=== PATIENT | male | born 1940 | race Caucasian/White ===

== ENCOUNTER 2022-11-23 00:03 | Outpatient (CLI) | payer MEDICARE, BC | END 2022-11-23 23:59 | disposition critical access hospital (66) | LOC: EMS 00:03 | DX: I95.1 Orthostatic hypotension (principal); R42 Dizziness and giddiness; R11.0 Nausea; R10.30 Lower abdominal pain, unspecified | CPT/HCPCS: A0425; A0427 ==

== ENCOUNTER 2022-11-23 00:35 | Emergency (ER) | payer MEDICARE, BC ==
[2022-11-23] MEDS ORDERED: ONDANSETRON 4 MG/2 ML VIAL IVP STA (00:52)
[2022-11-23] MEDS ORDERED: MECLIZINE 12.5 MG TABLET PO STA (00:53)
--- NOTE | 2022-11-23 00:56 | ED Physician Documentation ---
History of Present Illness - Stated complaint Stated Complaint: DIZZINESS/NAUSEA - Chief complaint Chief Complaint: Neuro - History obtained from History obtained from: Patient - Additonal information Additional information: Patient is an 82-year-old male presenting for evaluation of feeling dizziness with nausea since around 6 PM. Patient states that he also has a discomfort across his abdomen and then started feeling the nausea and dizziness. The dizziness he describes as feeling like he is going to faint or pass out and is worse if he moves or tries to sit up or stand up.He reports having a history of vertigo in the past which she states the last episode was 3 years ago. He states at that time he had to lay on the floor for several hours before he was able to get up and make it into a bed where he laid for a few more hours. He did not see a doctor at that time. He denies a headache, chest pain, cough, vomiting, diarrhea, extremity weakness. He is not on a blood thinner. 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 He denies any changes to his vision here tonight.Reports a history of syncope in the past for which she has seen cardiology. Per the paramedics, they were unable to get a blood pressure with him standing as he was feeling too lightheaded. They did start an IV and administered 1 L of IV fluids. Review of Systems Constitutional: denies: Fever Cardiac: denies: Chest pain / pressure Respiratory: denies: Dyspnea GI: reports: Abdominal Pain, Nausea : denies: Dysuria Musculoskeletal: denies: Back pain Neurologic: denies: Syncope, Headache PD PAST MEDICAL HISTORY - Present Medications Home Medications: Ambulatory Orders Medication Instructions Recorded Confirmed Acyclovir 800 mg PO BID 11/23/22 11/23/22 Aspirin [Aspirin Regimen] 81 mg PO 11/23/22 11/23/22 Calcium Carbonate/Vitamin D3 1 each PO DAILY 11/23/22 11/23/22 [Calcium 600-Vit D3 800 Tablet] Ondansetron Odt [Zofran] 4 mg TL Q6H PRN #10 tablet 11/23/22 Pantoprazole [Protonix] 40 mg PO DAILY 11/23/22 11/23/22 Sertraline [Zoloft] 100 mg PO DAILY 11/23/22 11/23/22 Simvastatin [Zocor] 20 mg PO HS 11/23/22 11/23/22 Timolol 0.5% Ophth Drops [Timoptic 1 drops LEFTEYE BID 11/23/22 11/23/22 0.5% Ophth Drops] - Allergies Allergies/Adverse Reactions: Allergies Allergy/AdvReac Type Severity Reaction Status Date / Time codeine Allergy Unknown Verified 11/23/22 01:13 morphine Allergy Unknown Verified 11/23/22 01:13 propoxyphene [From Darvon] Allergy Unknown Verified 11/23/22 01:13 PD ED PE NORMAL - General General: Alert and oriented X 3, No acute distress, Well developed/nourished - HEENT HEENT: Atraumatic, EOMI, Moist mucous membranes, Pharynx benign, Other (Left pupil round, reactive; Right pupil round, minimally reactive) - Neck Neck: Supple, no meningeal sign, No bony TTP - Cardiac Cardiac: RRR, No murmur - Respiratory Respiratory: No respiratory distress, Clear bilaterally - Abdomen Abdomen: Normal bowel sounds, Soft, Non distended, Other (Mild periumbilical tenderness to palpation) - Derm Derm: Warm and dry - Extremities Extremities: No deformity - Neuro Neuro: Alert and oriented X 3, registered associate 2-12 intact, No motor deficit, No sensory deficit, Normal speech, Other (Normal [id number] bilaterally) Results - Vitals Vitals: Vital Signs - 24 hr 11/23/22 11/23/22 11/23/22 00:41 01:40 03:03 Temperature 37 C Heart Rate 53 L 90 Heart Rate [ 90 Sitting] Heart Rate [ 98 Standing] Heart Rate [ 95 Supine] Respiratory 14 16 Rate Blood Pressure 137/61 H 136/64 H Blood Pressure 129/70 [Sitting] Blood Pressure 116/70 [Standing] Blood Pressure 148/76 H [Supine] O2 Saturation 94 98 11/23/22 03:35 Temperature 36.7 C Heart Rate 67 Heart Rate [ Sitting] Heart Rate [ Standing] Heart Rate [ Supine] Respiratory 14 Rate Blood Pressure 123/73 Blood Pressure [Sitting] Blood Pressure [Standing] Blood Pressure [Supine] O2 Saturation 98 Oxygen O2 Source Room air - Labs Labs: Laboratory Tests 11/23/22 11/23/22 01:00 01:00 WBC 6.6 RBC 4.40 L Hgb 13.0 L Hct 39.4 L MCV 89.5 MCH 29.5 MCHC 33.0 RDW 12.6 Plt Count 224 MPV 9.2 Neut # (Auto) 5.1 Lymph # (Auto) 0.8 L [place] # (Auto) 0.5 Eos # (Auto) 0.2 Baso # (Auto) 0.1 Absolute Nucleated RBC 0.00 Nucleated RBC % 0.0 Sodium 138 Potassium 3.6 Chloride 103 Carbon Dioxide 24 Anion Gap 11.0 BUN 19 Creatinine 0.9 Estimated GFR (MDRD) 80 L Glucose 128 H Calcium 8.5 Total Bilirubin 0.3 AST 18 ALT 17 Alkaline Phosphatase 79 Total Protein 6.3 L Albumin 3.6 Globulin 2.7 Albumin/Globulin Ratio 1.3 Lipase 47 PD Medical Decision Making - ED course Complexity details: reviewed results, re-evaluated patient, d/w patient, d/w family ED course: 0245 - Patient reports feeling better. Does report still feeling some lighthe adedness with changing positions. His is also at the bedside. Reviewed current work-up.Discussed his earlier symptoms further. Patient denies feeling room spinning, off-balance Sensation. He describes the dizziness as feeling more lightheaded Than anything. Patient presenting for evaluation of dizziness with abdominal pain and nausea starting this evening.Per EMS he was orthostatic at the scene. His initial vital signs here appear stable. His neurologic exam is normal with no focal deficits. Patient initially had difficulty in describing what he meant by dizziness. Therefore head CT was obtained which is negative for signs of an intracranial hemorrhage. A CBC and chemistry were also reviewed without significant findings.His EKG demonstrates a sinus rhythm. There does appear to be a first-degree AV block. I do not have any prior for comparison. He does not have any chest pain to suggest ACS. I reviewed patient's chest x-ray as well as CT scan of the abdomen and pelvis and without any significant findings. Patient is feeling significantly better after IV fluids and Zofran. He received 1 L of IV fluids from EMS and additional 500 cc of IV fluids here After orthostatic vitals were taken. Patient is able to ambulate to the restroom without any symptoms. He is feeling back to his usual self. He has an upcoming appointment with his PCP on Thursday. He understands the need for close outpatient follow-up as well as concerning symptoms to return for. Departure - Departure Disposition: Home, Self Care Clinical Impression: Dizziness, Orthostatic hypotension, First degree AV block Condition: Good Instructions: ED Dizziness [facility] Follow-Up: SYBIL PARTIDA MD [Primary Care Provider] - Within 3 Days Prescriptions: Ondansetron Odt [Zofran] 4 mg TL Q6H PRN #10 tablet PRN Reason: Nausea / Vomiting Comments: You were found to have orthostatic hypotension which means that your blood pressure drops too much when you go from laying down to standing. This can make you feel dizzy and faint. We have given you IV fluids which appears to have helped your symptoms.Your labs including a CBC and chemistries did not show any significant abnormalities. We did obtain a CT scan of your brain as well as your abdomen and pelvis and there was also no concerning findings. Your EKG does show some irregularities including a first-degree AV block. I do not have access to any of your old EKGs to know if this is something that is been present In the past. I would recommend close follow-up with your primary care provider as well as with a media developer. I have sent a prescription for antinausea medication to [facility] in [place]. Please make sure you are staying hydrated and Take it slow when you are changing positions. If you develop any worsening symptoms please return to the emergency department. Discharge Date/Time: 11/23/22 03:45
[2022-11-23 01:05] LABS: BASOPHILS # (AUTO) 0.1 10^3/uL (0.0-0.1); BASOPHILS % (AUTO) 0.8 %; EOSINOPHILS # (AUTO) 0.2 10^3/uL (0.0-0.7); EOSINOPHILS % (AUTO) 2.6 %; HCT - HEMATOCRIT 39.4 % (42.0-52.0); LYMPHOCYTES # (AUTO) 0.8 10^3/uL (1.5-3.5); LYMPHOCYTES % (AUTO) 12.4 %; MEAN CORPUSCULAR HEMOGLOBIN 29.5 pg (27.0-31.0); MEAN CORPUSCULAR VOLUME 89.5 fL (80.0-94.0); MEAN PLATELET VOLUME 9.2 fL (7.4-11.4); MONOCYTES # (AUTO) 0.5 10^3/uL (0.0-1.0); MONOCYTES % (AUTO) 7.8 %; NEUTROPHILS # (AUTO) 5.1 10^3/uL (1.5-6.6); NEUTROPHILS % (AUTO) 76.1 %; PLT - PLATELET COUNT 224 10^3/uL (130-450); RED CELL DISTRIBUTION WIDTH 12.6 % (12.0-15.0); WHITE BLOOD COUNT 6.6 x10^3/uL (4.8-10.8)
[2022-11-23 01:17] LABS: ALBUMIN 3.6 g/dL (3.2-5.5); ALBUMIN/GLOBULIN RATIO 1.3 (1.0-2.2); BILIRUBIN,TOTAL 0.3 mg/dL (0.2-1.0); CALCIUM 8.5 mg/dL (8.5-10.3); CREATININE 0.9 mg/dL (0.6-1.2); POTASSIUM 3.6 mmol/L (3.5-5.0); TOTAL PROTEIN 6.3 g/dL (6.7-8.2)
[2022-11-23] MEDS ORDERED: iohexoL-300 100 ML VIAL ONE (01:30)
--- NOTE | 2022-11-23 01:48 | XRAY Report ---
PROCEDURE: Chest 1 View X-Ray INDICATIONS: dizzy TECHNIQUE: One view of the chest was acquired. COMPARISON: None. FINDINGS: Surgical changes and devices: None. Lungs and pleura: No pleural effusions or pneumothorax. Lungs are clear. Mediastinum: Mediastinal contours appear normal. Heart size is normal. Bones and chest wall: No suspicious bony lesions. Overlying soft tissues appear unremarkable. IMPRESSION: No acute cardiopulmonary process. Reviewed by: Ankit Levin MD on 11/23/2022 1:46 AM PDT Approved by: Ankit Levin MD on 11/23/2022 1:46 AM PDT Station ID: [id number]
--- NOTE | 2022-11-23 01:49 | CT Report ---
PROCEDURE: HEAD WO INDICATIONS: dizziness TECHNIQUE: Noncontrast 4.5 mm thick angled axial sections acquired from the foramen magnum to the vertex. For r adiation dose reduction, the following was used: automated exposure control, adjustment of mA and/or kV according to patient size. COMPARISON: None. FINDINGS: Image quality: Excellent. CSF spaces: Basal cisterns are patent. No extra-axial fluid collections. Ventricles are normal in size and shape. Brain: No midline shift. No intracranial masses or hemorrhage. Arora-white matter interface is norm al. Skull and face: Calvarium and visualized facial bones are intact, without suspicious lesions. Sinuses: Visualized sinuses and mastoids are clear. 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 Reviewed by: Ankit Levin MD on 11/23/2022 1:48 AM PDT Approved by: Ankit Levin MD on 11/23/2022 1:48 AM PDT Station ID: [id number]
[2022-11-23] MEDS ORDERED: iohexoL-300 100 ML VIAL IVP ONE (02:06)
[2022-11-23] MEDS ORDERED: SODIUM CHLORIDE 0.9% 500 ML IV STA (02:23)
[2022-11-23] MEDS ORDERED: ONDANSETRON ODT 4 MG Prepack 2 TL PRN (03:17)
[2022-11-23 03:50] VITALS: BP 123/73
--- NOTE | 2022-11-23 09:01 | CT Report ---
PROCEDURE: ABDOMEN/PELVIS W INDICATIONS: abd pain/nausea CONTRAST: 100 ML OMNI 300 TECHNIQUE: After the administration of IV contrast, 5 mm thick sections acquired from the diaphragms to the symp hysis. 5 mm thick coronal and sagittal reformats were acquired. For radiation dose reduction, the f ollowing was used: automated exposure control, adjustment of mA and/or kV according to patient size. COMPARISON: None FINDINGS: Image quality: Excellent. Lung bases and heart: Unremarkable. Liver: No solid mass. Gallbladder and biliary tree: No radiopaque stones or wall thickening. No biliary dilation. Spleen: No splenomegaly. Pancreas: No pancreatic ductal dilation. Adrenals: No adrenal nodule. Kidneys and ureters: No hydronephrosis. No renal cystic lesion which requires follow up. No solid mas s. Bowel and peritoneum: No bowel distension. No pathologic free fluid. Diverticulosis without evidence of diverticulitis. Lymph nodes: No central or retroperitoneal adenopathy. Vessels: No infrarenal aortic aneurysm. PELVIS Reproductive organs: Unremarkable. Bladder: No abnormal wall thickening, accounting for underdistension. Pelvic lymph nodes: No pelvic adenopathy by size criteria. Bones: No aggressive osseous abnormality. Other: Small fat-containing umbilical hernia. Small fat-containing left inguinal hernia which include s one wall and a few diverticula of the sigmoid colon. IMPRESSION: 1.Left inguinal hernia containing a small fraction of a single wall of the sigmoid colon. 2.Diverticulosis without evidence of acute diverticulitis. Interpretation was concordant with overnight read. Reviewed by: Jacob Gardner MD on 11/23/2022 8:00 AM CHRISTINE Approved by: Jacob Gardner MD on 11/23/2022 8:00 AM [facility]FFORD Station ID: [id number]
== END 2022-11-23 03:45 | disposition home or self-care (01) ==
LOC: EDUNIT# → ED 00:35
DX: I44.0 Atrioventricular block, first degree (principal); I95.1 Orthostatic hypotension
CPT/HCPCS: 36415; 70450; 71045; 74177; 80053; 83690; 85025; 93005; 96361; 96374; 99284; A9270; Q9967

== ENCOUNTER 2023-03-09 08:00 | Outpatient (CLI) | payer MEDICARE, BC ==
--- NOTE | 2023-03-09 15:39 | XRAY Report ---
PROCEDURE: Knee 3 View LT INDICATIONS: CONTUSION OF LEFT KNEE TECHNIQUE: 3 views of the left knee(s) were acquired. COMPARISON: None. FINDINGS: Bones: No fractures or dislocations. 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 No patella subluxation. No suspicious bony lesions. Soft tissues: Small knee joint effusion. No suspicious soft tissue calcifications or masses. IMPRESSION: No acute bony abnormality. Small joint effusion and mild to moderate tricompartmental osteoarthritis as above. Reviewed by: Rishi Huang MD on 03/09/2023 3:38 PM PDT Approved by: Rishi Huang MD on 03/09/2023 3:38 PM PDT Station ID: [id number]
== END 2023-03-09 23:59 | disposition home or self-care (01) ==
LOC: DI.S 08:00
PROVIDERS: ATTEND Physician Assistant Medical
DX: S80.02XA Contusion of left knee, initial encounter (principal); M25.462 Effusion, left knee